=== PATIENT | male | born 1970 | race Caucasian/White ===

== ENCOUNTER 2018-01-17 16:33 | Emergency (ER) | payer BC, OTHER ==
[~2018-01-17] VITALS: Ht 180.3 cm; Wt 100.5 kg
[~2018-01-17 16:33] MED LIST: FLUO10CA48 PO; LISI-461 PO; LPR25 PO; MULT-897 PO
[2018-01-17 16:42] VITALS: TEMP 36.6; Ht 180.3 cm; Wt 100.5 kg
[2018-01-17] MEDS ORDERED: PROPARACAINE HCL 0.5% OP SOLN 15 ML BTL ONE (17:27)
[2018-01-17] MEDS ORDERED: CEPH500C2 PO (17:43)
[2018-01-17 17:54] VITALS: BP 135/78; PULSE 75; O2SAT 99
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
== END 2018-01-17 17:55 | disposition home or self-care (01) ==
LOC: C.EDB 16:34 → C.EDD 17:55
DX: T20.00XA Burn of unspecified degree of head, face, and neck, unspecified site, initial encounter (principal); W33.19XA Accidental malfunction of other larger firearm, initial encounter; I10 Essential (primary) hypertension; Z86.711 Personal history of pulmonary embolism; Z79.899 Other long term (current) drug therapy

== ENCOUNTER 2020-10-02 16:33 | Observation (INO) ==
[2020-10-02] MEDS ORDERED: ASPIRIN CHEW 324 MG PO STA (16:40)
[2020-10-02 17:03] LABS: Basophils # (auto) 0.02 K/uL (0-0.2); Basophils % (auto) 0.4 %; Eosinophils # (auto) 0.21 K/uL (0-0.5); Eosinophils % (auto) 3.7 %; Hematocrit (blood only) 46.5 % (42-52); Immature Granulocytes # (auto) 0.02 K/uL (0.00-0.02); Immature Granulocytes % (auto) 0.4 %; Lymphocytes # (auto) 1.13 K/uL (1.2-3.4); Mean Corpuscular Hemoglobin 31.9 pg (25-34); Mean Corpuscular Hgb Conc 36.6 g/dL (32-36); Mean Corpuscular Volume 87.2 fL (80-100); Mean Platelet Volume 9.1 fL (7.4-10.4); Monocytes # (auto) 0.38 K/uL (0.11-0.59); Monocytes % (auto) 6.7 %; Neutrophils # (auto) 3.88 K/uL (1.4-6.5); Neutrophils % (auto) 68.8 %; Platelet Count 312 K/uL (130-400); RDW Coefficient of Variation 12.3 % (11.5-14.5); RDW Standard Deviation 39.3 fL (36.4-46.3); Red Blood Count 5.33 M/uL (4.7-6.1); White Blood Count 5.64 K/uL (4.8-10.8)
--- NOTE | 2020-10-02 17:07 | XRay Report ---
XR chest 1V portable CLINICAL HISTORY: Atypical chest pain COMPARISON STUDY: 03/17/2019 FINDINGS: The cardiac and mediastinal contours are normal. There is no evidence of focal pulmonary co nsolidation. There is no evidence of failure. No pleural effusions are visualized.[ IMPRESSION: No active disease in the chest. ACT 112: Negative or not required by law. Electronically signed by: Ry Khan M.D. 10/02/2020 5:06 PM
--- NOTE | 2020-10-02 17:35 | Emergency Department Note ---
Impression & Plan Chest pain ED Provider Note NAME: KARTIK CASTILLO II AGE: 50 SEX: M : 1970 ARRIVES VIA: Walk-In INFORMANT: Patient, ED PROVIDER(S): Terrance Alvarez DO CHIEF COMPLAINT: Shortness of breath and chest pain HPI: The patient is a 50-year-old male who has a history of pulmonary embolism who presented to the emergency department for an evaluation of left-sided chest pain. The patient states that he has noticed intermittent episodes of left- sided chest pain. He states that this began earlier in the week. He notices that he has some exertional dyspnea which is new for him. He denies having any lower extremity swelling. The patient states that he has been compliant with his outpatient medication regimen. He denies having any fever or cough. The patient denies having any headache or syncope. He has had no palpitations. The patient states his pain is completely resolved at this time. He does notice it somewhat worsened with exertion. The patient states that he does exercise routinely and has noticed decreased exercise tolerance. ROS: See above HPI for pertinent positives & negatives. A total of 10 systems reviewed and were otherwise negative. PAST MEDICAL HISTORY: See Below PAST SURGICAL HISTORY: See Below FAMILY HISTORY: See Below SOCIAL HISTORY: See Below HOME MEDICATIONS: See Below ALLERGIES: See Below VITALS: See Below PHYSICAL EXAMINATION: GENERAL: Patient is awake alert in no acute distress patient is resting comfortably and showing no signs of anxiety EYES: The conjunctivae are clear. The pupils are round and reactive. EARS, NOSE, MOUTH AND THROAT: The nose is without any evidence of any deformity. NECK: The neck is nontender and supple. RESPIRATORY: Normal respiratory effort is noted there is no evidence of wheezing rhonchi or rales CARDIOVASCULAR: Regular rate and rhythm noted there no murmurs rubs or gallops normal S1 normal S2. GASTROINTESTINAL: The abdomen is soft. Abdomen is nontender. MUSCULOSKELETAL/EXTREMITIES: There is no evidence of gross deformity full range of motion is noted in the hips and shoulders. SKIN: There is no obvious evidence of any rash. There are no petechiae, pallor or cyanosis noted. NEUROLOGIC: Patient is awake alert and oriented x 3. MEDICAL DECISION MAKING: The patient is a 50-year-old male who presented to the emergency department for an evaluation of chest pain. The patient describes left-sided chest pain and exercise intolerance. The patient has noticed that he is much more short of breath especially with any exertion. He normally has an exercise routine that he has been able to keep up with. The patient has no discomfort at this time. He states he has been compliant with his outpatient medication regimen which includes an oral anticoagulant for pulmonary embolism. I discussed the patient's laboratory and radiographic studies with him. I also discussed the limitations of the emergency department work-up for chest pain with him. The patient did have an elevated heart score and I feel that he is high risk. For this reason I discussed his case with the on-call [facility] Hospitalist. They have agreed to evaluate the patient in the emergency department for further management and disposition. Triage Nursing notes reviewed. Prior medical records reviewed Vital Signs: reviewed and remarkable for elevated blood pressure. Differential diagnosis: Cardiac ischemia, aortic dissection, pulmonary embolism, pneumothorax, pneumonia, pericarditis, myocarditis, esophageal rupture, GERD, cholecystitis, pancreatitis, musculoskeletal, as well as other pathologies. ER treatment provided: See below Diagnostics interpreted by me: ECG: EKG was obtained in the emergency department. My interpretation is normal sinus rhythm at 87 bpm. There was no ectopy. Inferior ST segment abnormalities were noted. This was compared to a tracing from March 172018. The ST segment depressions are new compared to previous. Cardiac Monitoring: An order was placed for continuous cardiac monitoring. The monitor shows a rate of 75 bpm with sinus rhythm. Laboratory studies: As stated above and show below. Imaging studies: See below Consultation(s): 1924: I discussed this case with Dr. Arciniega who is on-call for the [facility]ist group. He will evaluate the patient in the emergency department for further management and disposition. ED COURSE: The patient has a heart score of 4-5. I feel this represents moderate risk for the patient and he may require inpatient management. Past Med/Surg History Medical History Anxiety Depression HTN (hypertension) On anticoagulant therapy KEATON (obstructive sleep apnea) mouth appliance Pulmonary embolism May 2015. unknown reasoning. takes Xarelto, follows with Hematology [facility] Surgical History Hx laparoscopic cholecystectomy (03/19/19) Laparoscopic Cholecystectomy with Cholangiogram Dr. 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 Beliefs That Will Affect Care: None marital status: Current Living Situation: Family current occupational status: employed Feels Safe at Home: Yes Assistive Devices: Glasses Allergies Allergies Allergy/AdvReac Type Severity Reaction Status Date / Time acetaminophen [From Percocet] AdvReac Nausea Verified 10/02/20 17:59 oxycodone [From Percocet] AdvReac Nausea Verified 10/02/20 17:59 synthetic Suture Allergy Intermediate SEE COMMENT Uncoded 10/02/20 17:59 Home Meds Home Medications Medication Instructions Recorded Confirmed escitalopram oxalate [Lexapro] 20 mg PO QAM 04/17/18 10/02/20 multivitamin 1 tab PO QAM 04/17/18 10/02/20 lisinopril 10 mg PO QAM 10/02/20 10/02/20 rivaroxaban [Xarelto] 20 mg PO QAM 10/02/20 10/02/20 Results & Data (ED) Vital Signs Vital Signs - 24 hr 10/02/20 16:36 10/02/20 16:42 10/02/20 16:43 Temperature 36.4 C L Temperature Source Temporal Artery Scan Pulse Rate 98 H 86 Pulse Rate [Left Apical] 92 H Pulse Rate from SpO2 Sensor 86 Pulse Rhythm Regular Pulse Rhythm [Left Apical] Regular Pulse Strength Normal Pulse Strength [Left Apical] Normal Respiratory Rate 20 17 22 Respiratory Effort / Characteristics Non-Labored Non-Labored Spontaneous Respiratory Depth Normal Normal Respiratory Pattern Regular Blood Pressure 185/129 H Blood Pressure [Right Arm] 165/117 H Blood Pressure Mean 147 Blood Pressure Mean [Right Arm] 133 Blood Pressure Position Sitting Blood Pressure Position [Right Arm] Lying Pulse Oximetry 97 96 96 Oxygen Delivery Method Room Air Room Air Sepsis Recent Fever Within 48 Hours No Sepsis New/Unexplained Change in Mental Status No Sepsis Action Taken by Nursing No Action Required 10/02/20 16:52 10/02/20 17:00 10/02/20 17:10 Temperature Temperature Source Pulse Rate 89 88 87 Pulse Rate [Left Apical] Pulse Rate from SpO2 Sensor 88 88 88 Pulse Rhythm Pulse Rhythm [Left Apical] Pulse Strength Pulse Strength [Left Apical] Respiratory Rate 22 21 20 Respiratory Effort / Characteristics Respiratory Depth Respiratory Pattern Blood Pressure 165/117 H Blood Pressure [Right Arm] Blood Pressure Mean 133 Blood Pressure Mean [Right Arm] Blood Pressure Position Blood Pressure Position [Right Arm] Pulse Oximetry 95 96 95 Oxygen Delivery Method Sepsis Recent Fever Within 48 Hours Sepsis New/Unexplained Change in Mental Status Sepsis Action Taken by Nursing 10/02/20 17:20 10/02/20 17:30 10/02/20 17:40 Temperature Temperature Source Pulse Rate 83 86 83 Pulse Rate [Left Apical] Pulse Rate from SpO2 Sensor 84 86 84 Pulse Rhythm Pulse Rhythm [Left Apical] Pulse Strength Pulse Strength [Left Apical] Respiratory Rate 16 20 18 Respiratory Effort / Characteristics Respiratory Depth Respiratory Pattern Blood Pressure Blood Pressure [Right Arm] Blood Pressure Mean Blood Pressure Mean [Right Arm] Blood Pressure Position Blood Pressure Position [Right Arm] Pulse Oximetry 97 96 96 Oxygen Delivery Method Sepsis Recent Fever Within 48 Hours Sepsis New/Unexplained Change in Mental Status Sepsis Action Taken by Nursing 10/02/20 17:50 10/02/20 18:00 10/02/20 18:02 Temperature Temperature Source Pulse Rate 79 79 84 Pulse Rate [Left Apical] 79 Pulse Rate from SpO2 Sensor 75 80 83 Pulse Rhythm Pulse Rhythm [Left Apical] Regular Pulse Strength Pulse Strength [Left Apical] Normal Respiratory Rate 17 18 19 Respiratory Effort / Characteristics Non-Labored Spontaneous Respiratory Depth Normal Respiratory Pattern Regular Blood Pressure 155/118 H Blood Pressure [Right Arm] 155/118 H Blood Pressure Mean 130 Blood Pressure Mean [Right Arm] 130 Blood Pressure Position Blood Pressure Position [Right Arm] Lying Pulse Oximetry 96 94 96 Oxygen Delivery Method Room Air Sepsis Recent Fever Within 48 Hours Sepsis New/Unexplained Change in Mental Status Sepsis Action Taken by Nursing 10/02/20 18:10 10/02/20 18:20 10/02/20 18:30 Temperature Temperature Source Pulse Rate 84 83 77 Pulse Rate [Left Apical] Pulse Rate from SpO2 Sensor 84 83 80 Pulse Rhythm Pulse Rhythm [Left Apical] Pulse Strength Pulse Strength [Left Apical] Respiratory Rate 13 18 15 Respiratory Effort / Characteristics Respiratory Depth Respiratory Pattern Blood Pressure 143/111 H Blood Pressure [Right Arm] Blood Pressure Mean 121 Blood Pressure Mean [Right Arm] Blood Pressure Position Blood Pressure Position [Right Arm] Pulse Oximetry 96 96 96 Oxygen Delivery Method Sepsis Recent Fever Within 48 Hours Sepsis New/Unexplained Change in Mental Status Sepsis Action Taken by Nursing 10/02/20 18:31 10/02/20 18:40 10/02/20 18:50 Temperature Temperature Source Pulse Rate 79 79 76 Pulse Rate [Left Apical] Pulse Rate from SpO2 Sensor 80 79 74 Pulse Rhythm Pulse Rhythm [Left Apical] Pulse Strength Pulse Strength [Left Apical] Respiratory Rate 17 20 18 Respiratory Effort / Characteristics Respiratory Depth Respiratory Pattern Blood Pressure Blood Pressure [Right Arm] Blood Pressure Mean Blood Pressure Mean [Right Arm] Blood Pressure Position Blood Pressure Position [Right Arm] Pulse Oximetry 96 95 95 Oxygen Delivery Method Sepsis Recent Fever Within 48 Hours Sepsis New/Unexplained Change in Mental Status Sepsis Action Taken by Nursing 10/02/20 19:00 10/02/20 19:01 10/02/20 19:10 Temperature Temperature Source Pulse Rate 74 79 77 Pulse Rate [Left Apical] Pulse Rate from SpO2 Sensor 76 77 79 Pulse Rhythm Pulse Rhythm [Left Apical] Pulse Strength Pulse Strength [Left Apical] Respiratory Rate 19 15 18 Respiratory Effort / Characteristics Respiratory Depth Respiratory Pattern Blood Pressure 144/112 H Blood Pressure [Right Arm] Blood Pressure Mean 122 Blood Pressure Mean [Right Arm] Blood Pressure Position Blood Pressure Position [Right Arm] Pulse Oximetry 95 95 97 Oxygen Delivery Method Sepsis Recent Fever Within 48 Hours Sepsis New/Unexplained Change in Mental Status Sepsis Action Taken by Nursing 10/02/20 19:20 10/02/20 19:30 10/02/20 19:35 Temperature Temperature Source Pulse Rate 79 74 73 Pulse Rate [Left Apical] Pulse Rate from SpO2 Sensor 78 74 Pulse Rhythm Regular Pulse Rhythm [Left Apical] Pulse Strength Pulse Strength [Left Apical] Respiratory Rate 18 17 14 Respiratory Effort / Characteristics Respiratory Depth Respiratory Pattern Blood Pressure 154/108 H Blood Pressure [Right Arm] Blood Pressure Mean 123 Blood Pressure Mean [Right Arm] Blood Pressure Position Blood Pressure Position [Right Arm] Pulse Oximetry 96 96 98 Oxygen Delivery Method Room Air Sepsis Recent Fever Within 48 Hours Sepsis New/Unexplained Change in Mental Status Sepsis Action Taken by [facility] Medications Current Medication List: was personally reviewed by me Laboratory Data Attestation: I reviewed the patient's lab results. Result diagrams: 10/02/20 16:50 10/02/20 16:50 Lab Results 10/02/20 10/02/20 10/02/20 Range/Units 16:50 16:50 16:50 WBC 5.64 (4.8-10.8) K/uL RBC 5.33 (4.7-6.1) M/uL Hgb 17.0 (14.0-18.0) g/dL Hct 46.5 (42-52) % MCV 87.2 (80-100) fL MCH 31.9 (25-34) pg MCHC 36.6 H (32-36) g/dL RDW Std Deviation 39.3 (36.4-46.3) fL RDW Coeff of Raul 12.3 (11.5-14.5) % Plt Count 312 (130-400) K/uL MPV 9.1 (7.4-10.4) fL Immature Gran % (Auto) 0.4 % Neut % (Auto) 68.8 % Lymph % (Auto) 20.0 % [place] % (Auto) 6.7 % Eos % (Auto) 3.7 % Baso % (Auto) 0.4 % Neut # (Auto) 3.88 (1.4-6.5) K/uL Lymph # (Auto) 1.13 L (1.2-3.4) K/uL [place] # (Auto) 0.38 (0.11-0.59) K/uL Eos # (Auto) 0.21 (0-0.5) K/uL Baso # (Auto) 0.02 (0-0.2) K/uL Immature Gran # (Auto) 0.02 (0.00-0.02) K/uL PT Cancelled INR Cancelled APTT Cancelled PTT Ratio Cancelled D-Dimer Cancelled Sodium 139 (136-145) mmol/L Potassium 3.5 (3.5-5.1) mmol/L Chloride 107 (98-107) mmol/L Carbon Dioxide 26 (21-32) mmol/L Anion Gap 6.0 (3-11) BUN 16 (7-18) mg/dl Creatinine 0.94 (0.6-1.4) mg/dl Est Cr Clr Drug Dosing 117.7 ml/min Est GFR ( Amer) 109.9 Est GFR (Non-Af Amer) 94.8 BUN/Creatinine Ratio 16.8 (10-20) Glucose 168 H (70-99) mg/dl Calcium 8.4 L (8.5-10.1) mg/dl Total Bilirubin 0.9 (0.2-1) mg/dl AST 14 L (15-37) U/L ALT 26 (12-78) U/L Alkaline Phosphatase 91 (45-117) U/L Troponin I < 0.015 (0-0.045) ng/ml Total Protein 7.7 (6.4-8.2) gm/dl Albumin 3.6 (3.4-5.0) gm/dl Globulin 4.1 H (2.5-4.0) gm/dl Albumin/Globulin Ratio 0.9 (0.9-2) Lipase 243 (73-393) U/L Specimen Hemolysis COVID-19 Eval Order SARS-CoV-2 (PCR) (Negative) Influenza Type A (PCR) (Neg) Influenza Type B (PCR) (Neg) RSV (RT-PCR) (Neg) 10/02/20 10/02/20 10/02/20 Range/Units 17:28 17:28 19:30 WBC (4.8-10.8) K/uL RBC (4.7-6.1) M/uL Hgb (14.0-18.0) g/dL Hct (42-52) % MCV (80-100) fL MCH (25-34) pg MCHC (32-36) g/dL RDW Std Deviation (36.4-46.3) fL RDW Coeff of Raul (11.5-14.5) % Plt Count (130-400) K/uL MPV (7.4-10.4) fL Immature Gran % (Auto) % Neut % (Auto) % Lymph % (Auto) % [place] % (Auto) % Eos % (Auto) % Baso % (Auto) % Neut # (Auto) (1.4-6.5) K/uL Lymph # (Auto) (1.2-3.4) K/uL [place] # (Auto) (0.11-0.59) K/uL Eos # (Auto) (0-0.5) K/uL Baso # (Auto) (0-0.2) K/uL Immature Gran # (Auto) (0.00-0.02) K/uL PT 10.0 INR 1.0 APTT 25.4 PTT Ratio 1.0 D-Dimer 280 Sodium (136-145) mmol/L Potassium (3.5-5.1) mmol/L Chloride (98-107) mmol/L Carbon Dioxide (21-32) mmol/L Anion Gap (3-11) BUN (7-18) mg/dl Creatinine (0.6-1.4) mg/dl Est Cr Clr Drug Dosing ml/min Est GFR ( Amer) Est GFR (Non-Af Amer) BUN/Creatinine Ratio (10-20) Glucose (70-99) mg/dl Calcium (8.5-10.1) mg/dl Total Bilirubin (0.2-1) mg/dl AST (15-37) U/L ALT (12-78) U/L Alkaline Phosphatase (45-117) U/L Troponin I (0-0.045) ng/ml Total Protein (6.4-8.2) gm/dl Albumin (3.4-5.0) gm/dl Globulin (2.5-4.0) gm/dl Albumin/Globulin Ratio (0.9-2) Lipase (73-393) U/L Specimen Hemolysis COVID-19 Eval Order CovFluRsv at [facility] SARS-CoV-2 (PCR) (Negative) Influenza Type A (PCR) (Neg) Influenza Type B (PCR) (Neg) RSV (RT-PCR) (Neg) 10/02/20 Range/Units 19:30 WBC (4.8-10.8) K/uL RBC (4.7-6.1) M/uL Hgb (14.0-18.0) g/dL Hct (42-52) % MCV (80-100) fL MCH (25-34) pg MCHC (32-36) g/dL RDW Std Deviation (36.4-46.3) fL RDW Coeff of Raul (11.5-14.5) % Plt Count (130-400) K/uL MPV (7.4-10.4) fL Immature Gran % (Auto) % Neut % (Auto) % Lymph % (Auto) % [place] % (Auto) % Eos % (Auto) % Baso % (Auto) % Neut # (Auto) (1.4-6.5) K/uL Lymph # (Auto) (1.2-3.4) K/uL [place] # (Auto) (0.11-0.59) K/uL Eos # (Auto) (0-0.5) K/uL Baso # (Auto) (0-0.2) K/uL Immature Gran # (Auto) (0.00-0.02) K/uL PT INR APTT PTT Ratio D-Dimer Sodium (136-145) mmol/L Potassium (3.5-5.1) mmol/L Chloride (98-107) mmol/L Carbon Dioxide (21-32) mmol/L Anion Gap (3-11) BUN (7-18) mg/dl Creatinine (0.6-1.4) mg/dl Est Cr Clr Drug Dosing ml/min Est GFR ( Amer) Est GFR (Non-Af Amer) BUN/Creatinine Ratio (10-20) Glucose (70-99) mg/dl Calcium (8.5-10.1) mg/dl Total Bilirubin (0.2-1) mg/dl AST (15-37) U/L ALT (12-78) U/L Alkaline Phosphatase (45-117) U/L Troponin I (0-0.045) ng/ml Total Protein (6.4-8.2) gm/dl Albumin (3.4-5.0) gm/dl Globulin (2.5-4.0) gm/dl Albumin/Globulin Ratio (0.9-2) Lipase (73-393) U/L Specimen Hemolysis COVID-19 Eval Order SARS-CoV-2 (PCR) NEGATIVE (Negative) Influenza Type A (PCR) Negative (Neg) Influenza Type B (PCR) Negative (Neg) RSV (RT-PCR) Negative (Neg) Administered Medications Discontinued Medications Aspirin (Aspirin Chew 324 Mg) 324 mg PO NOW STA Stop: 10/02/20 16:41 Last Admin: 10/02/20 16:55 Dose: 324 mg Documented by: [id number] Imaging Data Radiologist's Impression: Chest X-Ray 10/02/20 16:40 XR chest 1V portable CLINICAL HISTORY: Atypical chest pain COMPARISON STUDY: 03/17/2019 FINDINGS: The cardiac and mediastinal contours are normal. There is no evidence of focal pulmonary consolidation. There is no evidence of failure. No pleural effusions are visualized.[ IMPRESSION: No active disease in the chest. ACT 112: Negative or not required by law. Electronically signed by: Ry Khan M.D. 10/02/2020 5:06 PM Discharge Plan Visit Data Chief Complaint: Chest Pain Stated Complaint: CHEST PAINS, SOB, DIZZINESS ED Provider: Terrance Alvarez Discharge Problem: Chest pain Patient Disposition: Being Evaluated by Hospitalist Condition: Good Forms Stand Alone Forms: [facility] Prescriptions Prescriptions: No Action multivitamin Tablet 1 tab PO QAM RF: 0 escitalopram oxalate [Lexapro] 20 mg Tablet 20 mg PO QAM RF: 0 lisinopril 10 mg tablet 10 mg PO QAM RF: 0 Xarelto 20 mg tablet 20 mg PO QAM RF: 0 Referrals Referrals: Devon Bell MD [Primary Care Provider] - Discharge Problem: Chest pain Qualifiers: Chest pain type: unspecified Qualified Code(s): R07.9 - Chest pain, unspecified
[2020-10-02 17:39] LABS: Alanine Aminotransferase 26 U/L (12-78); Albumin Globulin Ratio 0.9 (0.9-2); Albumin Level 3.6 gm/dl (3.4-5.0); Alkaline Phosphatase 91 U/L (45-117); Aspartate Aminotransferase 14 U/L (15-37); BUN Creatinine Ratio 16.8 (10-20); Bilirubin,Total 0.9 mg/dl (0.2-1); Blood Urea Nitrogen 16 mg/dl (7-18); Calcium 8.4 mg/dl (8.5-10.1); Carbon Dioxide 26 mmol/L (21-32); Chloride 107 mmol/L (98-107); Creatinine Clr Calc Pharmacy 117.7 ml/min; Est GFR (African American) 109.9; Est GFR (Non-African American) 94.8; Globulin 4.1 gm/dl (2.5-4.0); Glucose 168 mg/dl (70-99); Lipase 243 U/L (73-393); Potassium 3.5 mmol/L (3.5-5.1); Sodium 139 mmol/L (136-145); Total Protein 7.7 gm/dl (6.4-8.2); Troponin I < 0.015 ng/ml (0-0.045)
[2020-10-02 17:49] LABS: D Dimer 280 ug/L FEU (0-500)
[2020-10-02 18:36] LABS: Partial Thromboplastin Time 25.4 Seconds (21.0-31.0)
[2020-10-02 20:22] LABS: Influenza A virus by PCR Negative (Neg); Influenza B virus by PCR Negative (Neg); RSV by PCR Negative (Neg); SARS CoV2 RNA(COVID-19) InHosp NEGATIVE (Negative)
[2020-10-02] MEDS ORDERED: ONDANSETRON INJ 2 MG/ML 2 ML VIAL IV PRN (21:53)
[2020-10-02] MEDS ORDERED: NITROGLYCERIN SL 0.4 MG/TAB TAB SL PRN (21:53)
[2020-10-02] MEDS ORDERED: POLYETHYLENE (MIRALAX) 17 GM PACK PO PRN (21:53)
[2020-10-02] MEDS ORDERED: ACETAMINOPHEN 325 MG TAB PO PRN (21:53)
[2020-10-02] MEDS ORDERED: lisinopril 10 MG TAB PO STA (22:28)
--- NOTE | 2020-10-02 22:54 | History and Physical Report ---
DATE OF ADMISSION: 10/02/2020 CHIEF COMPLAINT: Chest pain. HISTORY OF PRESENT ILLNESS: This 50-year-old male with past medical history significant for prediabetes, history of pulmonary embolism diagnosed several years ago, on Xarelto, history of sleep apnea, hypertension, generalized anxiety disorder, insomnia, presents with chest pain. The patient lives with his . Since 1 week, he is having on and off chest pain. The pain comes on its own. He is also having exertional shortness of breath, mowing a small amount of grass caused him short of breath yesterday and today morning again he had chest pain. At this time, along with tightness in the left chest also had numbness initially in the left upper extremity that lasted until afternoon. Since then, it did not recur, but because of his ongoing symptoms, he came to the hospital. Denies any exertional chest pain, no nausea, no sweating. Has some dizziness. He is also having on and off headache since last 1 week. No blurred vision. No double vision, no earache, no runny nose, no sore throat. He says he lost sense of smell and taste in April, but right now he is doing okay. Appetite is okay. No dysphagia, no sore throat, no cough, no fever or chills. No abdominal pain. Normal bowel and bladder movements. No hematuria or blood in the stools or black stools. No swelling in the legs, no rash. Currently resting comfortably and hemodynamically stable. Appetite is good. He says he lost about 20 pounds in the last 4-5 months, but attributes to his recent work. ALLERGIES: PERCOCET, SYNTHETIC SUTURE. PAST MEDICAL HISTORY: As mentioned above. PAST SURGICAL HISTORY: Cyst removed from the left side of his nose, varicocele excision. MEDICATIONS: The patient is on Lexapro 20 mg p.o. a.m., lisinopril 10 mg p.o. a.m., multivitamins 1 tablet p.o. a.m., Xarelto 20 mg p.o. daily. FAMILY HISTORY: Significant for father had diabetes, hypertension, sleep apnea. Mother had stroke. Brother has diabetes. Paternal grandfather had cancer and diabetes. Maternal grandmother had diabetes. SOCIAL HISTORY: . No smoking. Occasional alcohol. No drug use. REVIEW OF SYMPTOMS: As per HPI. Rest of the review of symptoms negative. PHYSICAL EXAMINATION: GENERAL: The patient is obese, not in acute distress. VITAL SIGNS: Temperature 36.4, pulse 73, respiratory rate 14, blood pressure 154/108, oxygen 98% on room air. HEENT: Pupils equal, round, and reactive to light. Oral mucosa moist. NECK: No JVD, no neck masses, no carotid bruits. CARDIOVASCULAR: S1, S2 heard, regular rate and rhythm, no murmur, no gallop. RESPIRATORY SYSTEM: Normal AP diameter. No accessory muscle use. No wheezing, no crackles. ABDOMEN: Soft, bowel sounds present, nontender. No distention. CENTRAL NERVOUS SYSTEM: Cranial nerves II-XII grossly intact, nonfocal. EXTREMITIES: No edema, no erythema. LABORATORY DATA: WBC 5.6, hemoglobin 17, hematocrit 46.5, platelets 312. PT 10, INR 1, APTT 25.4. D-dimer 280. Sodium 139, potassium 3.5, chloride 107, bicarbonate 26, BUN 16, creatinine 0.9, serum glucose 168, calcium 8.4, total bilirubin 0.9, AST 14, ALT 26, alkaline phosphatase 91. Troponin I less than 0.015. Lipase 243. SARS-CoV-2 PCR negative. Influenza A and B PCR negative, RSV PCR negative. IMAGING: Chest x-ray, no active disease in the chest. EKG: Normal sinus rhythm, rate of 87, left axis deviation, nonspecific ST abnormality, no significant change was found. ASSESSMENT AND PLAN: This 50-year-old male presents with chest pain. 1. Chest pain, rule out acute coronary syndrome. Initial workup is negative. Risk factors are age, hypertension, prediabetes, obesity. We will follow serial enzymes, echocardiogram. We will keep n.p.o. after midnight. Consult cardiology in the a.m. for further recommendations. 2. History of prediabetes, diabetic diet. Follow hemoglobin A1c levels. 3. History of pulmonary embolism, on Xarelto. 4. Hypertension, on lisinopril. 5. General anxiety disorder, on Lexapro. 6. Deep vein thrombosis prophylaxis, sequential compression devices. 7. Disposition: Observation in med-telemetry. Expect discharge home and follow with family doctor. Level 1 full code. MTDD
[2020-10-03 05:47] LABS: Basophils # (auto) 0.05 K/uL (0-0.2); Basophils % (auto) 0.8 %; Eosinophils # (auto) 0.29 K/uL (0-0.5); Eosinophils % (auto) 4.6 %; Hematocrit (blood only) 46.7 % (42-52); Hemoglobin 16.6 g/dL (14.0-18.0); Immature Granulocytes # (auto) 0.01 K/uL (0.00-0.02); Immature Granulocytes % (auto) 0.2 %; Lymphocytes # (auto) 1.29 K/uL (1.2-3.4); Lymphocytes % (auto) 20.3 %; Mean Corpuscular Hemoglobin 31.2 pg (25-34); Mean Corpuscular Hgb Conc 35.5 g/dL (32-36); Mean Corpuscular Volume 87.8 fL (80-100); Mean Platelet Volume 9.2 fL (7.4-10.4); Monocytes # (auto) 0.53 K/uL (0.11-0.59); Monocytes % (auto) 8.3 %; Neutrophils # (auto) 4.19 K/uL (1.4-6.5); Neutrophils % (auto) 65.8 %; Platelet Count 287 K/uL (130-400); RDW Coefficient of Variation 12.5 % (11.5-14.5); RDW Standard Deviation 39.7 fL (36.4-46.3); Red Blood Count 5.32 M/uL (4.7-6.1); White Blood Count 6.36 K/uL (4.8-10.8)
[2020-10-03 06:14] LABS: Estimated Average Glucose 117 mg/dl; Hemoglobin A1C 5.7 % (4.5-5.6)
[2020-10-03 06:19] LABS: Blood Urea Nitrogen 17 mg/dl (7-18); Calcium 8.5 mg/dl (8.5-10.1); Carbon Dioxide 29 mmol/L (21-32); Chloride 109 mmol/L (98-107); Creatinine Clr Calc Pharmacy 120.3 ml/min; Est GFR (African American) 112.8; Est GFR (Non-African American) 97.3; Glucose 105 mg/dl (70-99); Magnesium 2.2 mg/dl (1.8-2.4); Sodium 141 mmol/L (136-145)
[2020-10-03 06:26] LABS: Chol HDL Ratio 4; Cholesterol 185 mg/dl (0-200); HDL Cholesterol 44 mg/dl; LDL Cholesterol Calculated 109 mg/dl; Triglycerides 159 mg/dl (0-150); Troponin I < 0.015 ng/ml (0-0.045); VLDL Cholesterol 32 mg/dl
--- NOTE | 2020-10-03 08:39 | Cardiology Consultation ---
Date of Consultation October 03, 2020 Assessment & Plan (1) Chest pain: (2) Pulmonary embolism: (3) HTN (hypertension): (4) KEATON (obstructive sleep apnea): (5) Depression: Pt presents with atypical chest pain for one week accompanied by fatigue, mendez and a headache intial ischemic workup was unremarkable stress testing showed no inducible ischemia, however, a severly hypertensive bp response to exercise will treat for uncontrolled hypertension increase lisinopril to 40mg daily bmp and cardiology f/u with [facility] in one week, I will arrange findings discussed with patient, is in agreement with plan ok to d/c to home from cardiac standpoint History of Present Illness Reason for Consultation: chest pain Requesting Physician: Dr. Arciniega Attending Physician: Daylin Xiao MD History of Present Illness It was my pleasure to see Mr. appiah in cardiac consultation today October 03, 2020. He is a very pleasant 50-year-old gentleman who has not previously been seen by our Cardiology practice. He presented to [facility] with complaints of 1 week of chest discomfort, headaches and dyspnea with exertion. He describes the discomfort as a dull pressure sensation along his left precordium. He states that can happen at rest or with exertion and usually last several minutes before subsiding with rest. During this time he has also had recurrent headaches which has never been an issue for him previously. He has also noted increased dyspnea particularly at work. He woke yesterday with the chest discomfort he had his became concerned and he presented to [facility] Emergency Department. Initial ischemic workup was unre markable and he was admitted to telemetry. No recurrence of chest discomfort or headaches overnight. States he is currently feeling back to normal at rest. Allergies Allergy/AdvReac Type Severity Reaction Status Date / Time acetaminophen [From Percocet] AdvReac Nausea Verified 10/02/20 17:59 oxycodone [From Percocet] AdvReac Nausea Verified 10/02/20 17:59 synthetic Suture Allergy Intermediate SEE COMMENT Uncoded 10/02/20 17:59 Home Medications Medication Instructions Recorded Confirmed Type escitalopram oxalate [Lexapro] 20 mg PO QAM 04/17/18 10/02/20 History multivitamin 1 tab PO QAM 04/17/18 10/02/20 History lisinopril 10 mg PO QAM 10/02/20 10/02/20 History rivaroxaban [Xarelto] 20 mg PO QAM 10/02/20 10/02/20 History Patient History Medical History Anxiety Depression HTN (hypertension) On anticoagulant therapy KEATON (obstructive sleep apnea) mouth appliance Pulmonary embolism May 2015. unknown reasoning. takes Xarelto, follows with Hematology [facility] Surgical History Hx laparoscopic cholecystectomy (03/19/19) Laparoscopic Cholecystectomy with Cholangiogram Dr. 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 Beliefs That Will Affect Care: None marital status: Current Living Situation: Spouse Current Living Situation Comment: current occupational status: employed Other Information That Helps Us Care for You: No Feels Safe at Home: Yes Safety Concerns: Feels Safe At This Time Assistive Devices: None Review of Systems Review of Systems: All systems reviewed & are unremarkable except as noted in HPI & below Results & Data ([facility]) Vital Signs (Past 12 Hours) Vital Signs Temp Pulse Pulse Resp BP Pulse Ox 10/03/20 03:00 36.7 C 67 16 135/92 94 10/02/20 22:26 36.3 C L 74 18 173/110 H 93 10/02/20 22:19 71 10/02/20 21:48 67 10/02/20 21:45 36.5 C 75 18 166/108 H 93 10/02/20 20:45 70 21 96 Laboratory Results Laboratory Results - last 24 hr 10/02/20 10/02/20 10/02/20 16:50 16:50 16:50 WBC 5.64 RBC 5.33 Hgb 17.0 Hct 46.5 MCV 87.2 MCH 31.9 MCHC 36.6 H RDW Std Deviation 39.3 RDW Coeff of Raul 12.3 Plt Count 312 MPV 9.1 Immature Gran % (Auto) 0.4 Neut % (Auto) 68.8 Lymph % (Auto) 20.0 [place] % (Auto) 6.7 Eos % (Auto) 3.7 Baso % (Auto) 0.4 Neut # (Auto) 3.88 Lymph # (Auto) 1.13 L [place] # (Auto) 0.38 Eos # (Auto) 0.21 Baso # (Auto) 0.02 Immature Gran # (Auto) 0.02 PT Cancelled INR Cancelled APTT Cancelled PTT Ratio Cancelled D-Dimer Cancelled Sodium 139 Potassium 3.5 Chloride 107 Carbon Dioxide 26 Anion Gap 6.0 BUN 16 Creatinine 0.94 Est Cr Clr Drug Dosing 117.7 Est GFR ( Amer) 109.9 Est GFR (Non-Af Amer) 94.8 BUN/Creatinine Ratio 16.8 Glucose 168 H Estimat Average Glucose Hemoglobin A1c Calcium 8.4 L Magnesium Total Bilirubin 0.9 AST 14 L ALT 26 Alkaline Phosphatase 91 Troponin I < 0.015 Total Protein 7.7 Albumin 3.6 Globulin 4.1 H Albumin/Globulin Ratio 0.9 Triglycerides Cholesterol LDL Cholesterol, Calc VLDL Cholesterol, Calc HDL Cholesterol Cholesterol/HDL Ratio Lipase 243 Specimen Hemolysis COVID-19 Eval Order SARS-CoV-2 (PCR) Influenza Type A (PCR) Influenza Type B (PCR) RSV (RT-PCR) 10/02/20 10/02/20 10/02/20 17:28 17:28 19:30 WBC RBC Hgb Hct MCV MCH MCHC RDW Std Deviation RDW Coeff of Raul Plt Count MPV Immature Gran % (Auto) Neut % (Auto) Lymph % (Auto) [place] % (Auto) Eos % (Auto) Baso % (Auto) Neut # (Auto) Lymph # (Auto) [place] # (Auto) Eos # (Auto) Baso # (Auto) Immature Gran # (Auto) PT 10.0 INR 1.0 APTT 25.4 PTT Ratio 1.0 D-Dimer 280 Sodium Potassium Chloride Carbon Dioxide Anion Gap BUN Creatinine Est Cr Clr Drug Dosing Est GFR ( Amer) Est GFR (Non-Af Amer) BUN/Creatinine Ratio Glucose Estimat Average Glucose Hemoglobin A1c Calcium Magnesium Total Bilirubin AST ALT Alkaline Phosphatase Troponin I Total Protein Albumin Globulin Albumin/Globulin Ratio Triglycerides Cholesterol LDL Cholesterol, Calc VLDL Cholesterol, Calc HDL Cholesterol Cholesterol/HDL Ratio Lipase Specimen Hemolysis COVID-19 Eval Order CovFluRsv at [facility] SARS-CoV-2 (PCR) Influenza Type A (PCR) Influenza Type B (PCR) RSV (RT-PCR) 10/02/20 10/02/20 10/03/20 19:30 22:12 05:28 WBC RBC Hgb Hct MCV MCH MCHC RDW Std Deviation RDW Coeff of Raul Plt Count MPV Immature Gran % (Auto) Neut % (Auto) Lymph % (Auto) [place] % (Auto) Eos % (Auto) Baso % (Auto) Neut # (Auto) Lymph # (Auto) [place] # (Auto) Eos # (Auto) Baso # (Auto) Immature Gran # (Auto) PT INR APTT PTT Ratio D-Dimer Sodium 141 Potassium 4.0 Chloride 109 H Carbon Dioxide 29 Anion Gap 3.0 BUN 17 Creatinine 0.92 Est Cr Clr Drug Dosing 120.3 Est GFR ( Amer) 112.8 Est GFR (Non-Af Amer) 97.3 BUN/Creatinine Ratio 19.0 Glucose 105 H Estimat Average Glucose Hemoglobin A1c Calcium 8.5 Magnesium 2.2 Total Bilirubin AST ALT Alkaline Phosphatase Troponin I < 0.015 < 0.015 Total Protein Albumin Globulin Albumin/Globulin Ratio Triglycerides 159 H Cholesterol 185 LDL Cholesterol, Calc 109 VLDL Cholesterol, Calc 32 HDL Cholesterol 44 Cholesterol/HDL Ratio 4 Lipase Specimen Hemolysis COVID-19 Eval Order SARS-CoV-2 (PCR) NEGATIVE Influenza Type A (PCR) Negative Influenza Type B (PCR) Negative RSV (RT-PCR) Negative 10/03/20 10/03/20 05:28 05:28 WBC 6.36 RBC 5.32 Hgb 16.6 Hct 46.7 MCV 87.8 MCH 31.2 MCHC 35.5 RDW Std Deviation 39.7 RDW Coeff of Ralu 12.5 Plt Count 287 MPV 9.2 Immature Gran % (Auto) 0.2 Neut % (Auto) 65.8 Lymph % (Auto) 20.3 [place] % (Auto) 8.3 Eos % (Auto) 4.6 Baso % (Auto) 0.8 Neut # (Auto) 4.19 Lymph # (Auto) 1.29 [place] # (Auto) 0.53 Eos # (Auto) 0.29 Baso # (Auto) 0.05 Immature Gran # (Auto) 0.01 PT INR APTT PTT Ratio D-Dimer Sodium Potassium Chloride Carbon Dioxide Anion Gap BUN Creatinine Est Cr Clr Drug Dosing Est GFR ( Amer) Est GFR (Non-Af Amer) BUN/Creatinine Ratio Glucose Estimat Average Glucose 117 Hemoglobin A1c 5.7 H Calcium Magnesium Total Bilirubin AST ALT Alkaline Phosphatase Troponin I Total Protein Albumin Globulin Albumin/Globulin Ratio Triglycerides Cholesterol LDL Cholesterol, Calc VLDL Cholesterol, Calc HDL Cholesterol Cholesterol/HDL Ratio Lipase Specimen Hemolysis COVID-19 Eval Order SARS-CoV-2 (PCR) Influenza Type A (PCR) Influenza Type B (PCR) RSV (RT-PCR) Medications Administered Current Inpatient Medications Acetaminophen (Acetaminophen 325 Mg Tab) 650 mg PO Q4H PRN PRN Reason: Pain or Fever Stop: 11/01/20 21:52 Aspirin (Aspirin 81 Mg Ectab) [address] [facility] Stop: 11/02/20 08:59 Last Admin: 10/03/20 08:09 Dose: 81 mg Documented by: Escitalopram Oxalate (Escitalopram Oxalate 20 Mg Tab) [address] [facility] Stop: 11/02/20 08:59 Last Admin: 10/03/20 08:09 Dose: 20 mg Documented by: Lisinopril (Lisinopril 10 Mg Tab) [address] [facility] Stop: 11/02/20 08:59 Last Admin: 10/03/20 08:09 Dose: 10 mg Documented by: Multivitamins (Multivitamin Tab) [address] [facility] Stop: 11/02/20 08:59 Last Admin: 10/03/20 08:09 Dose: 1 tab Documented by: Nitroglycerin (Nitroglycerin Sl 0.4 Mg/Tab Tab) 0.4 mg SL UD PRN PRN Reason: Chest Pain Stop: 11/01/20 21:52 Ondansetron HCl (Ondansetron Inj 2 Mg/Ml 2 Ml Vial) 4 mg IV Q6H PRN PRN Reason: Nausea Stop: 11/01/20 21:52 Polyethylene Glycol (Polyethylene (Miralax) 17 Gm Pack) 17 gm PO DAILY PRN PRN Reason: Constipation Stop: 11/01/20 21:52 Rivaroxaban (Rivaroxaban 20 Mg Tab) [address] [facility] Stop: 11/02/20 08:59 Last Admin: 10/03/20 08:09 Dose: 20 mg Documented by: (1) Chest pain Chest pain type: unspecified Qualified Code(s): R07.9 - Chest pain, unspecified
[2020-10-03] MEDS ORDERED: RIVAROXABAN 20 MG TAB PO SCH (09:00)
[2020-10-03] MEDS ORDERED: lisinopril 10 MG TAB PO SCH (09:00)
[2020-10-03] MEDS ORDERED: ESCITALOPRAM OXALATE 20 MG TAB PO SCH (09:00)
[2020-10-03] MEDS ORDERED: ASPIRIN 81 MG ECTAB PO SCH (09:00)
[2020-10-03] MEDS ORDERED: MULTIVITAMIN TAB PO SCH (09:00)
--- NOTE | 2020-10-03 12:22 | Hospitalist Progress Note ---
Date of Service October 03, 2020 Assessment & Plan (1) Chest pain: Presented with atypical chest pain Serial cardiac troponins and EKG were unremarkable Status post stress echo which did not show any ischemia Stress echo did show hypertensive response Appreciate cardiology input and recommendation Has been free of symptoms following the stress test He will be discharged home this afternoon with outpatient cardiology appointment within 1 week (2) HTN (hypertension): Stress test just showed hypertensive response Lisinopril dose has been increased to 40 mg once a day (3) Pulmonary embolism: No acute issue Has been on Xarelto (4) KEATON (obstructive sleep apnea): (5) Anxiety: Continue Lexapro (6) Depression: Continue Lexapro DVT prophylaxis On Xarelto CODE STATUS Full Admission and Anticipated Discharge Date Admission Date: October 02, 2020 Subjective 10/03/2020 The patient was seen and examined in medical telemetry unit He was admitted with atypical chest pain yesterday Underwent stress echo which came out to be unremarkable but noted to have hypertensive response Denies any symptoms following the stress test Will be discharged home this afternoon Review of Systems Review of Systems: All systems reviewed and are unremarkable except as noted below Cardiovascular: no chest pain and no palpitations Additional Comments: Hypertensive response during stress echo Physical Exam Physical Exam: Sitting on a chair without any acute distress Constitutional: well developed and well nourished; not ill appearing Eyes: PERRL, conjunctivae normal, anicteric sclerae ENMT: external ear and nose normal, oropharynx normal Neck: trachea midline, no thyromegaly Respiratory: no respiratory distress Auscultation: lungs clear to auscultation bilaterally Cardiovascular: Rate/Rhythm: regular rate and regular rhythm Heart Sounds: no murmur Extremities: no edema Gastrointestinal (Abdomen): Inspection/Auscultation: normal bowel sounds; abdomen not distended Percussion/Palpation: abdomen soft; abdomen nontender Musculoskeletal: No acute arthritis in any joint Neurologic: Alert, awake and oriented x3. No focal sensory and motor deficit appreciated Psychiatric: A+Ox3, euthymic affect Lymphatic: no cervical or axillary lymphadenopathy Results & Data Results & Data ([facility]) Vital Signs (Past 12 Hours) Vital Signs Temp Pulse Pulse Resp BP Pulse Ox 10/03/20 11:27 36.7 C 93 H 16 120/83 94 10/03/20 08:00 64 10/03/20 03:00 36.7 C 67 16 135/92 94 Laboratory Results Short CBC 10/02/20 10/03/20 Range/Units 16:50 05:28 WBC 5.64 6.36 (4.8-10.8) K/uL Hgb 17.0 16.6 (14.0-18.0) g/dL Hct 46.5 46.7 (42-52) % Plt Count 312 287 (130-400) K/uL BMP 10/02/20 10/03/20 16:50 05:28 Sodium 139 141 Potassium 3.5 4.0 Chloride 107 109 H Carbon Dioxide 26 29 BUN 16 17 Creatinine 0.94 0.92 Glucose 168 H 105 H Calcium 8.4 L 8.5 Cardiac Enzymes 10/02/20 10/02/20 10/03/20 Range/Units 16:50 22:12 05:28 Troponin I < 0.015 < 0.015 < 0.015 (0-0.045) ng/ml Liver Function 10/02/20 Range/Units 16:50 Total Bilirubin 0.9 (0.2-1) mg/dl AST 14 L (15-37) U/L ALT 26 (12-78) U/L Alkaline Phosphatase 91 (45-117) U/L Albumin 3.6 (3.4-5.0) gm/dl Medications Administered Current Inpatient Medications Acetaminophen (Acetaminophen 325 Mg Tab) 650 mg PO Q4H PRN PRN Reason: Pain or Fever Stop: 11/01/20 21:52 Aspirin (Aspirin 81 Mg Ectab) [address] [facility] Stop: 11/02/20 08:59 Last Admin: 10/03/20 08:09 Dose: 81 mg Documented by: Escitalopram Oxalate (Escitalopram Oxalate 20 Mg Tab) [address] [facility] Stop: 11/02/20 08:59 Last Admin: 10/03/20 08:09 Dose: 20 mg Documented by: Lisinopril (Lisinopril 10 Mg Tab) [address] [facility] Stop: 11/02/20 08:59 Last Admin: 10/03/20 08:09 Dose: 10 mg Documented by: Multivitamins (Multivitamin Tab) [address] [facility] Stop: 11/02/20 08:59 Last Admin: 10/03/20 08:09 Dose: 1 tab Documented by: Nitroglycerin (Nitroglycerin Sl 0.4 Mg/Tab Tab) 0.4 mg SL UD PRN PRN Reason: Chest Pain Stop: 11/01/20 21:52 Ondansetron HCl (Ondansetron Inj 2 Mg/Ml 2 Ml Vial) 4 mg IV Q6H PRN PRN Reason: Nausea Stop: 11/01/20 21:52 Polyethylene Glycol (Polyethylene (Miralax) 17 Gm Pack) 17 gm PO DAILY PRN PRN Reason: Constipation Stop: 11/01/20 21:52 [facility]aroxaban ([facility] 20 Mg Tab) [facility] Stop: 11/02/20 08:59 Last Admin: 10/03/20 08:09 Dose: 20 mg Documented by: (1) Chest pain Chest pain type: unspecified Qualified Code(s): R07.9 - Chest pain, unspecified
--- NOTE | 2020-10-03 17:29 | Electrocardiogram Report ---
Test Reason : Blood Pressure : / mmHG Vent. Rate : 087 BPM Atrial Rate : 087 BPM P-R Int : 126 ms QRS Dur : 090 ms QT Int : 362 ms P-R-T Axes : 035 -38 060 degrees QTc Int : 435 ms Normal sinus rhythm Left axis deviation Nonspecific ST abnormality Abnormal ECG When compared with ECG of 17-MAR-2019 13:46, No significant change was found Confirmed by Jayson Bronson ([id number]) on 10/03/2020 5:28:36 PM Referred By: REFERRED SELF Confirmed By:Romario Bronson
--- NOTE | 2020-10-03 17:34 | Electrocardiogram Report ---
Test Reason : Blood Pressure : / mmHG Vent. Rate : 064 BPM Atrial Rate : 064 BPM P-R Int : 136 ms QRS Dur : 100 ms QT Int : 416 ms P-R-T Axes : 033 -20 010 degrees QTc Int : 429 ms Normal sinus rhythm Normal ECG When compared with ECG of 02-OCT-2020 16:42, (unconfirmed) No significant change was found Confirmed by Jayson Bronson ([id number]) on 10/03/2020 5:34:11 PM Referred By: REFERRED SELF Confirmed By:Romario Bronson
[2020-10-04] MEDS ORDERED: lisinopril 40 MG TAB PO SCH (09:00)
--- NOTE | 2020-10-04 09:03 | Discharge Summary ---
Date of Service October 04, 2020 Admission HPI Per Admitting Provider DICTATED BY: Ezekiel Arciniega MD DATE OF ADMISSION: 10/02/2020 CHIEF COMPLAINT: Chest pain. HISTORY OF PRESENT ILLNESS: This 50-year-old male with past medical history significant for prediabetes, history of pulmonary embolism diagnosed several years ago, on Xarelto, history of sleep apnea, hypertension, generalized anxiety disorder, insomnia, presents with chest pain. The patient lives with his . Since 1 week, he is having on and off chest pain. The pain comes on its own. He is also having exertional shortness of breath, mowing a small amount of grass caused him short of breath yesterday and today morning again he had chest pain. At this time, along with tightness in the left chest also had numbness initially in the left upper extremity that lasted until afternoon. Since then, it did not recur, but because of his ongoing symptoms, he came to the hospital. Denies any exertional chest pain, no nausea, no sweating. Has some dizziness. He is also having on and off headache since last 1 week. No blurred vision. No double vision, no earache, no runny nose, no sore throat. He says he lost sense of smell and taste in April, but right now he is doing okay. Appetite is okay. No dysphagia, no sore throat, no cough, no fever or chills. No abdominal pain. Normal bowel and bladder movements. No hematuria or blood in the stools or black stools. No swelling in the legs, no rash. Currently resting comfortably and hemodynamically stable. Appetite is good. He says he lost about 20 pounds in the last 4-5 months, but attributes to his recent work. Admission Exam Per Admitting Provider GENERAL: The patient is obese, not in acute distress. VITAL SIGNS: Temperature 36.4, pulse 73, respiratory rate 14, blood pressure 154/108, oxygen 98% on room air. HEENT: Pupils equal, round, and reactive to light. Oral mucosa moist. NECK: No JVD, no neck masses, no carotid bruits. CARDIOVASCULAR: S1, S2 heard, regular rate and rhythm, no murmur, no gallop. RESPIRATORY SYSTEM: Normal AP diameter. No accessory muscle use. No wheezing, no crackles. ABDOMEN: Soft, bowel sounds present, nontender. No distention. CENTRAL NERVOUS SYSTEM: Cranial nerves II-XII grossly intact, nonfocal. EXTREMITIES: No edema, no erythema. Principal Diagnosis Atypical chest pain, negative stress echo, hypertensive response, sleep apnea. Depression Discharge Exam Constitutional well developed and well nourished; not ill appearing Eyes PERRL, conjunctivae normal, anicteric sclerae ENMT external ear and nose normal, oropharynx normal Neck trachea midline, no thyromegaly Respiratory no respiratory distress Auscultation: lungs clear to auscultation bilaterally Cardiovascular Rate/Rhythm: regular rate and regular rhythm Heart Sounds: no murmur Extremities: no edema Gastrointestinal (Abdomen) Inspection/Auscultation: normal bowel sounds; abdomen not distended Percussion/Palpation: abdomen soft; abdomen nontender Psychiatric A+Ox3, euthymic affect Lymphatic no cervical or axillary lymphadenopathy Discharge Data Allergies Allergy/AdvReac Type Severity Reaction Status Date / Time acetaminophen [From Percocet] AdvReac Nausea Verified 10/02/20 17:59 oxycodone [From Percocet] AdvReac Nausea Verified 10/02/20 17:59 synthetic Suture Allergy Intermediate SEE COMMENT Uncoded 10/02/20 17:59 Consultations 10/02/20 19:22 ED Decision to Admit Stat 10/03/20 08:00 Consult Cardiology Routine Hospital Course (1) Chest pain: Presented with atypical chest pain Serial cardiac troponins and EKG were unremarkable Status post stress echo which did not show any ischemia Stress echo did show hypertensive response Appreciate cardiology input and recommendation Has been free of symptoms following the stress test He will be discharged home this afternoon with outpatient cardiology appointment within 1 week (2) HTN (hypertension): Stress test just showed hypertensive response Lisinopril dose has been increased to 40 mg once a day (3) Pulmonary embolism: No acute issue Has been on Xarelto (4) KEATON (obstructive sleep apnea): (5) Anxiety: Continue Lexapro (6) Depression: Continue Lexapro DVT prophylaxis On Xarelto CODE STATUS Full Total Time Total Time Spent Total Time Spent (In Minutes): 35 minutes Total Time Includes: Examination of the Patient, Discharge Planning, Medication Reconciliation and Communication With Other Providers Discharge Plan Discharge Items Patient Disposition: Home - Self-Care Reason For Visit: CHEST PAIN Discharge Diagnosis: Atypical chest pain, negative stress echo, hypertensive response, sleep apnea. Depression Condition on Discharge: Good Activity: Resume your previous activity Non-emergency contact: Primary Care Provider Call non-emergency contact if: you have any medication questions and your symptoms worsen Follow-up/Referrals: Skyla Cormier CRNP [Outside Practitioners] - (Date & Time 10/07/2020 1:40 PM Provider BENJY Fuentes Department [facility] ) Diet: Heart Healthy Addtl Attending Provider Instructions: Please keep your follow-up appointments with PCP and the senior mortgage loan processor Your lisinopril dose has been increased to 40 mg once a day Pending Studies at Discharge: No Stand-Alone Forms: My [facility] [employer], Smoking Cessation Medications and DC Order Prescriptions: New aspirin 81 mg Tablet,Delayed Release (Dr/Ec) 81 mg PO QAM 30 Days Qty: 30 RF: 0 lisinopril [Zestril] 40 mg Tablet 40 mg PO QAM 30 Days Qty: 30 RF: 0 Continued multivitamin Tablet 1 tab PO QAM RF: 0 escitalopram oxalate [Lexapro] 20 mg Tablet 20 mg PO QAM RF: 0 Xarelto 20 mg tablet 20 mg PO QAM RF: 0 Discontinued lisinopril 10 mg tablet 10 mg PO QAM RF: 0 Discharge Orders: Discharge Order (Routine); Ordered 10/03/20 Ordered By: Daylin Xiao Admission Data Admit Date/Time: 10/02/20 20:17 Attending Provider: Daylin Xiao Admit Provider: Ezekiel Arciniega Primary Care Provider: Devon Bell Other Providers: Ezekiel Arciniega ; Moise Holly ; Alvaro Garcia ; Gee Dillard ; Adair Wynne ; Hitesh Salmeron ; Olaf Washburn ; Sharlene Villafuerte ; Jackie Fay ; Sydney Lawrence ; Santana Malone Other Interventions: Discharge Summary Assessment (RN) Last Done: 10/03/20 12:55
== END 2020-10-03 13:11 | disposition home or self-care (01) ==
LOC: 2N 16:33 → ED 16:33 → 2N 21:15